=== PATIENT | male | born 1970 | race Caucasian/White ===

== ENCOUNTER 2019-02-02 15:39 | Emergency (ER) | payer OTHER ==
[~2019-02-02] VITALS: Ht 170.2 cm; Wt 89.4 kg
[2019-02-02 15:39] VITALS: BP 109/76
== END 2019-02-02 16:34 | disposition home or self-care (01) ==
LOC: ER 15:39
DX: M25.512 Pain in left shoulder (principal); R42 Dizziness and giddiness; V43.53XA Car driver injured in collision with pick-up truck in traffic accident, initial encounter; Y93.89 Activity, other specified; Y92.411 Interstate highway as the place of occurrence of the external cause; Y99.8 Other external cause status